=== PATIENT | male | born 1965 | race Caucasian/White ===

== ENCOUNTER 2019-08-31 07:53 | Emergency (ER) | payer OTHER ==
[2019-08-31] MEDS ORDERED: Diphtheria,Pertussis(Acell),Tetanus Vaccine 0.5 ML SDV IM ONE (08:07)
[2019-08-31] MEDS ORDERED: Bacitracin Oint 1 GM U/D Packet TOP ONE (08:13)
--- NOTE | 2019-08-31 08:16 | EDM.PDOC ---
ED HPI GENERAL MEDICAL PROBLEM - General Chief Complaint: Skin Complaint Stated Complaint: FISH HOOK LEFT THUMB Time Seen by Provider: 08/31/19 08:05 Source of Information: Reports: Patient History Limitations: Reports: No Limitations - History of Present Illness INITIAL COMMENTS - FREE TEXT/NARRATIVE: 54 yo male here with a single shadi of a treble hook imbedded in his L proximal thumb. [place]. Tetanus is not UTD. Onset: Today Onset Date: 08/31/19 Duration: Minutes:, Constant Location: Reports: Upper Extremity, Left Quality: Reports: Sharp Severity: Mild Improves with: Reports: Rest Worsens with: Reports: Movement (of hook) Context: Reports: Trauma Associated Symptoms: Reports: No Other Symptoms Treatments QUALITY CONTROL ASSOCIATE: Reports: Other (see below) (none) - Related Data Allergies Allergy/AdvReac Type Severity Reaction Status Date / Time No Known Allergies Allergy Verified 08/31/19 08:03 Home Meds: Home Meds NK [No Known Home Meds] 08/31/19 [History] Social & Family History - Tobacco Use Smoking Status *Q: Never Smoker - Caffeine Use Caffeine Use: Reports: Coffee - Recreational Drug Use Recreational Drug Use: No ED ROS GENERAL - Review of Systems Review Of Systems: See Below Constitutional: Reports: No Symptoms Skin: Reports: Wound (puncture L thumb) Neurological: Reports: No Symptoms ED EXAM, SKIN/RASH Exam: See Below Exam Limited By: No Limitations General Appearance: Alert, WD/WN, No Apparent Distress Extremities: Other (fish hook L thumb). No: Pedal Edema, Increased Warmth, Redness Neurological: Alert, Oriented, CN II-XII Intact, Normal Cognition, No Motor/Sensory Deficits Psychiatric: Normal Affect, Normal Mood Skin: Warm, Dry, Normal Color, No Rash, Wound/Incision (single shadi of fish hook imbedded in L thumb). No: Ecchymosis, Erythema Location, Skin: Upper Extremity, Left Characteristics: No: Erythematous Associated features: Tenderness. No: Warmth, Lymphangitis ED SKIN PROCEDURES - Foreign Body Removal Performing Doctor:: Enzo Obrien Anesthesia Type: Local (2 ml of 1% lidocaine) Complications:: No Comments:: Shadi of fish hook covered w/ a #18 gauge needle and backed out. Course - Vital Signs Text/Narrative:: dressing per RN Last Recorded V/S: Last Vital Signs Temp 36 C L 08/31/19 08:05 Pulse 59 L 08/31/19 08:05 Resp 12 08/31/19 08:05 BP 136/68 08/31/19 08:05 Pulse Ox 99 08/31/19 08:05 - Orders/Labs/Meds Orders: Active Orders 24 hr Category Date Time Status Vaccines to be Administered [RC] PER UNIT ROUTINE Care 08/31/19 08:07 Ordered Meds: Medications Discontinued Medications Generic Name Dose Route Start Last Admin Trade Name Barbara PRN Reason Stop Dose Admin Bacitracin 1 dose 08/31/19 08:13 Bacitracin Oint 1 Gm TOP 08/31/19 08:14 ONETIME ONE Diphtheria/Tetanus/Acell Pertussis 0.5 ml 08/31/19 08:07 08/31/19 08:11 Adacel IM 08/31/19 08:08 0.5 ml .ONCE ONE Administration Lidocaine HCl 5 ml 08/31/19 08:03 08/31/19 08:08 Xylocaine-Mpf 1% INJECT 08/31/19 08:04 5 ml ONETIME ONE Administration Departure - Departure Time of Disposition: 08:19 Disposition: Home, Self-Care 01 Condition: Good Clinical Impression: Fish hook injury of finger of left hand Qualifiers: Encounter type: initial encounter Qualified Code(s): S69.92XA - Unspecified injury of left wrist, hand and finger(s), initial encounter - Discharge Information *PRESCRIPTION DRUG MONITORING PROGRAM REVIEWED*: No *COPY OF PRESCRIPTION DRUG MONITORING REPORT IN PATIENT SANDY: No Referrals: PCP,None [Primary Care Provider] - Forms: ED Department Discharge Additional Instructions: Keep area clean for up to 3 days with frequent soap and water washes. Recheck for signs of infection. Sepsis Event Note (ED) - Evaluation Sepsis Screening Result: No Definite Risk - Focused Exam Vital Signs: Vital Signs Temp Pulse Resp BP Pulse Ox 08/31/19 08:05 36 C L 59 L 12 136/68 99 08/31/19 08:03 36 C L 59 L 12 136/68 99 - My Orders Last 24 Hours: My Active Orders 08/31/19 08:07 Vaccines to be Administered [RC] PER UNIT ROUTINE - Assessment/Plan Last 24 Hours: My Active Orders 08/31/19 08:07 Vaccines to be Administered [RC] PER UNIT ROUTINE
== END 2019-08-31 08:31 | disposition home or self-care (01) ==
LOC: JP.ED 07:53
DX: S60.352A Superficial foreign body of left thumb, initial encounter (principal); Z23 Encounter for immunization; W45.8XXA Other foreign body or object entering through skin, initial encounter
CPT/HCPCS: 90471; 90715; 99283; J2001